=== PATIENT | female | born 1950 | race African-American/Black ===

== ENCOUNTER 2016-07-16 23:46 | Emergency (ER) | payer OTHER ==
[2016-07-17 00:06] VITALS: BMI 25.0
[2016-07-17] MEDS ORDERED: OXYCODONE/APAP 5/325MG COMBO TABLET PO ONE (00:43)
--- NOTE | 2016-07-17 00:47 | PDOC ---
History of Present Illness - General History Source: Patient - History of Present Illness Initial Comments: 07/17/16 01:31 65-year-old female who is right hand dominant presents to the emergency department complaining of 9/10 sharp nonradiating constant discomfort. Pain is exacerbated on movement and alleviated minimally at rest. Patient states she tripped and fell directly onto her right shoulder this evening. She denies any head injuries, headache, dizziness, lightheadedness, neck pains, back pains, chest pain, shortness of breath, abdominal pains, extremity numbness or tingling sensation. 0145hrs: Called Ortho online merchandising specialist Occurred: reports: just prior to arrival Upper Extremity Pain Location: right: shoulder Method of Injury: reports: fell <Dayday Felix - Last Filed: 07/17/16 05:33> <Ree Mojica - Last Filed: 07/17/16 06:31> - General Chief Complaint: Injury Stated Complaint: FALL Time Seen by Provider: 07/16/16 23:48 Past History - Past Medical History HTN: Yes - Psycho/Social/Smoking Cessation Hx Anxiety: No Suicidal Ideation: No Smoking History: Never smoked Have you smoked in the past 12 months: No Information on smoking cessation initiated: No Hx Alcohol Use: No Drug/Substance Use Hx: No <Dayday Felix - Last Filed: 07/17/16 05:33> <Ree Mojica - Last Filed: 07/17/16 06:31> - Past Medical History Allergies/Adverse Reactions: Allergies Allergy/AdvReac Type Severity Reaction Status Date / Time Penicillins Allergy Verified 07/16/16 23:57 quinapril HCl [From Accupril] Allergy Verified 07/16/16 23:57 Home Medications: Ambulatory Orders Furosemide [Lasix -] 40 mg PO DAILY 09/05/14 Valsartan [Diovan] 80 mg PO DAILY 09/05/14 Oxycodone HCl/Acetaminophen [Percocet 5-325 mg Tablet] 1 - 2 tab PO Q6H #20 tab MDD 4 07/17/16 Oxycodone HCl/Acetaminophen [Percocet 5-325 mg Tablet] 1 - 2 tab PO Q6H #20 tab MDD 4 07/17/16 Oxycodone HCl/Acetaminophen [Percocet 5/325 -] 1 tab PO Q6H #28 tablet MDD 4 *Physical Exam - Vital Signs Last Vital Signs Temp Pulse Resp BP Pulse Ox 98.3 F 75 20 124/76 98 07/16/16 23:57 07/16/16 23:57 07/16/16 23:57 07/16/16 23:57 07/16/16 23:57 <Dayday Felix - Last Filed: 07/17/16 05:33> - Vital Signs Last Vital Signs Temp Pulse Resp BP Pulse Ox 97 F L 68 19 163/89 97 07/17/16 05:38 07/17/16 05:38 07/17/16 05:38 07/17/16 05:38 07/17/16 05:38 <Ree Mojica - Last Filed: 07/17/16 06:31> Procedures - Joint Reduction Right Joint Reduction Site: right: Shoulder Pre-Procedure NV Exam: normal Conscious Sedation: Yes Complications: No Post Joint Reduction Film: joint reduced <Ree Mojica - Last Filed: 07/17/16 06:31> ED Treatment Course - LABORATORY CBC & Chemistry Diagram: 07/17/16 04:20 07/17/16 04:20 - RADIOLOGY Radiograph Interpretation: 07/17/16 03:32 A preliminary x-ray of the right shoulder shows a comminuted fracture of the humeral head with anterior dislocation. There is a questionable small glenoid fracture. 07/17/16 05:01 post reduction right shoulder/ reduced/fx <Dayday Felix - Last Filed: 07/17/16 05:33> - LABORATORY CBC & Chemistry Diagram: 07/17/16 04:20 07/17/16 04:20 - ADDITIONAL ORDERS Additional order review: Laboratory Results 07/17/16 07/17/16 04:20 04:00 Sodium 143 Potassium 4.1 Chloride 105 Carbon Dioxide 28 Anion Gap 10 BUN 9 Creatinine 1.0 Creat Clearance w eGFR 55.47 Random Glucose 134 H Calcium 9.5 Total Bilirubin 0.5 AST 33 ALT 32 Alkaline Phosphatase 73 Total Protein 7.2 Albumin 4.2 Blood Type O POSITIVE Antibody Screen Negative 07/17/16 04:20 RBC 4.47 MCV 88.9 MCHC 32.6 RDW 15.1 MPV 9.4 Neutrophils % 85.7 H Lymphocytes % 9.0 Monocytes % 4.8 Eosinophils % 0.1 Basophils % 0.4 - RADIOLOGY Radiology Studies Ordered: Category Date Time Status CHEST - PA [RAD] Stat Radiology 07/17/16 00:46 Taken ELBOW-RIGHT [RAD] Stat Radiology 07/17/16 00:44 Ordered HUMERUS-RIGHT [RAD] Stat Radiology 07/17/16 00:44 Taken SHOULDER-RIGHT [RAD] Stat Radiology 07/17/16 00:44 Taken - Medications Given in the ED: ED Medications Discontinued Medications Generic Name Dose Route Start Last Admin Trade Name Garry PRN Reason Stop Dose Admin Sodium Chloride 1,000 mls @ 150 mls/hr 07/17/16 03:30 07/17/16 03:52 Normal Saline - IV 150 mls/hr ASDIR YUSUF Administration Ketamine HCl 75 mg 07/17/16 04:09 07/17/16 04:20 Ketalar - IVPUSH 07/17/16 04:10 75 mg ONCE ONE Administration Oxycodone/Acetaminophen 2 combo 07/17/16 00:43 07/17/16 01:23 Percocet 5/325 - PO 07/17/16 00:44 2 combo ONCE ONE Administration <Ree Mojica - Last Filed: 07/17/16 06:31> Progress Note - Progress Note Progress Note: 0340hrs: FABIANO Preston coming to ER to consult and reduce pt's fx right shoulder <Dayday Felix - Last Filed: 07/17/16 05:33> *DC/Admit/Observation/Transfer - Discharge Dispostion Admit: No <Dayday Felix - Last Filed: 07/17/16 05:33> <Ree Mojica - Last Filed: 07/17/16 06:31> Diagnosis at time of Disposition: Shoulder fracture, right Qualifiers: Encounter type: initial encounter Fracture type: closed Qualified Code(s): S42.91XA - Fracture of right shoulder girdle, part unspecified, initial encounter for closed fracture Shoulder dislocation Qualifiers: Encounter type: initial encounter Laterality: right Qualified Code(s): S43.004A - Unspecified dislocation of right shoulder joint, initial encounter - Discharge Dispostion Disposition: HOME Condition at time of disposition: Guarded - Prescriptions Prescriptions: Oxycodone HCl/Acetaminophen [Percocet 5/325 -] 1 tab PO Q6H #28 tablet MDD 4 Oxycodone HCl/Acetaminophen [Percocet 5-325 mg Tablet] 1 - 2 tab PO Q6H #20 tab MDD 4 Oxycodone HCl/Acetaminophen [Percocet 5-325 mg Tablet] 1 - 2 tab PO Q6H #20 tab MDD 4 - Referrals Referrals: Elio Sherwood [Primary Care Provider] - Michael Fox MD [Staff Physician] - - Patient Instructions Printed Discharge Instructions: How to Use a Sling, DI for Shoulder Fracture, DI for Shoulder Dislocation Additional Instructions: Rest Ice Keep the sling on Follow up with Dr. Fox Tylenol/Motrin as needed for pain Return to the ER for severe/persistent/worsening symptoms
[2016-07-17] MEDS ORDERED: OXYCODONE/APAP 5/325MG COMBO TABLET ONE (01:17)
[2016-07-17] MEDS ORDERED: SODIUM CHLORIDE 1,000 ML IV SCH (03:30)
[2016-07-17] MEDS ORDERED: KETAMINE HCL 200 MG/20 ML VIAL IVPUSH ONE (04:09)
[2016-07-17] MEDS ORDERED: KETAMINE HCL 200 MG/20 ML VIAL ONE (04:31)
[2016-07-17 04:36] LABS: BASOPHIL 0.4 % (0-2.0); EOSINOPHIL 0.1 % (0-4.5); MCHC 32.6 g/dl (32.0-36.0); MEAN CELL VOLUME 88.9 fl (80-96); MEAN PLT VOLUME 9.4 fl (7.5-11.1); NEUTROPHILS 85.7 % (42.8-82.8); PLATELET COUNT 182 K/MM3 (134-434); RDW 15.1 % (11.6-15.6); WHITE BLOOD COUNT 8.8 K/mm3 (4.0-10.0)
[2016-07-17 04:56] LABS: ALBUMIN 4.2 g/dl (3.4-5.0); BILIRUBIN,TOTAL 0.5 mg/dL (0.2-1.0); CALCIUM 9.5 mg/dL (8.5-10.1); COCKROFT - GAULT 63.4015; TOT PROT 7.2 g/dl (6.4-8.2)
--- NOTE | 2016-07-17 05:28 | CONSULT ---
Consult Consult Specialty:: orthopedics Reason for Consultation:: Right shoulder fracture dislocation - History of Present Illness History of Present Illness: 65y/o female c/o right shoulder pain since about 11pm last night. She tripped on a step in the garage and fell hard on the right shoulder. She denies any numbness or tingling in the extremity. The pain is worse with motion and better with rest. The pain does not radiate. The pain is sharp in nature. No other associated, aggravating or relieving factors. - History Source History Provided By: Patient, Medical Record Limitations to Obtaining History: No Limitations - Alcohol/Substance Use Hx Alcohol Use: No - Smoking History Smoking history: Never smoked Have you smoked in the past 12 months: No Home Medications - Allergies Allergies/Adverse Reactions: Allergies Allergy/AdvReac Type Severity Reaction Status Date / Time Penicillins Allergy Verified 07/16/16 23:57 quinapril HCl [From Accupril] Allergy Verified 07/16/16 23:57 - Home Medications Home Medications: Ambulatory Orders Furosemide [Lasix -] 40 mg PO DAILY 09/05/14 Valsartan [Diovan] 80 mg PO DAILY 09/05/14 Oxycodone HCl/Acetaminophen [Percocet 5/325 -] 1 tab PO Q6H #28 tablet MDD 4 Review of Systems - Review of Systems Constitutional: reports: No Symptoms Eyes: reports: No Symptoms HENT: reports: No Symptoms Neck: reports: No Symptoms Cardiovascular: reports: No Symptoms Respiratory: reports: No Symptoms Gastrointestinal: reports: No Symptoms Genitourinary: reports: No Symptoms Breasts: reports: No Symptoms Reported Musculoskeletal: reports: Joint Pain, Muscle Pain Integumentary: reports: No Symptoms Neurological: reports: No Symptoms Endocrine: reports: No Symptoms Hematology/Lymphatic: reports: No Symptoms Psychiatric: reports: No Symptoms Physical Exam Vital Signs: Vital Signs Temperature 98.3 F 07/16/16 23:57 Pulse Rate 75 07/16/16 23:57 Respiratory Rate 20 07/16/16 23:57 Blood Pressure 124/76 07/16/16 23:57 O2 Sat by Pulse Oximetry (%) 98 07/16/16 23:57 Constitutional: Yes: Well Nourished, No Distress HENT: Yes: Atraumatic, Normocephalic Musculoskeletal: Yes: Other (Right shoulder: there is obvious deformity of the right shoulder. There are no open wounds. No erthema or ecchymosis. Moderate edema of the shoulder. Compartments are soft. NVID.) Labs: CBC, BMP 07/17/16 04:20 07/17/16 04:20 Imaging - Results X-ray: Report Reviewed, Image Reviewed (Right proximal humerous fracture/ dislocaiton. Greater tuberosity and surgical neck fracture.) Cat Scan: Report Reviewed, Image Reviewed (Comminuted fracture proximal humerous ) Assessment/Plan #1 Right shoulder fracture/dislocation -Discussed today's findings and treatment options with the patient. I have recommended a closed reduction with sedation and she would like to proceed. Written and verbal consent for the procedure was obtained. Procedure, Right shoulder fracture/dislocation reduction: The patient was placed in a supine position with a counter traction sheet in place. The patient was sedated with ketamine by the ER staff. Traction/counter-traction technique was then used and traction was held for several minutes and the shoulder was manipulated. post reduction x-rays were obtained showing reduction of the shoulder. The humerus was also palpable within the shoulder joint. The patient tolerated the procedure well. The patient was placed into a sling. Post reduction instructions given. Neurovascular exam was normal s/p reduction. -Follow up with Dr. Fox in office within one week -Pain control -Sling manager maritime
[2016-07-17 05:43] VITALS: BP 163/89; PULSE 68; TEMP 97
== END 2016-07-17 06:10 | disposition home or self-care (01) ==
LOC: JER 23:46
PROC: 0RSJXZZ Reposition Right Shoulder Joint, External Approach (ICD-10-PCS; principal; 2016-07-16)
DX: S43.004A Unspecified dislocation of right shoulder joint, initial encounter (principal); S42.91XA Fracture of right shoulder girdle, part unspecified, initial encounter for closed fracture; I10 Essential (primary) hypertension; W18.39XA Other fall on same level, initial encounter; Y93.9 Activity, unspecified; Y92.9 Unspecified place or not applicable
CPT/HCPCS: 23575; 36415; 71010-TC; 73030-TC-RT; 73060-TC-RT; 73200-TC-RT; 80053; 85025; 86850; 86900; 86901; 99283-25

== ENCOUNTER 2018-08-01 16:59 | Observation (INO) | payer OTHER | END 2018-08-03 18:57 | disposition home or self-care (01) | LOC: JER 16:59 → JERBED 19:06 → J4W 21:40 ==

== ENCOUNTER 2018-08-20 16:04 | Inpatient (IN) | payer OTHER ==
[2018-08-20 16:31] VITALS: BMI 37.3
[2018-08-20 17:12] LABS: BASO % 0.6 % (0-2.0); HEMATOCRIT 36.9 % (32.4-45.2); LYMPH % 24.5 % (8-40); MCH 29.3 pg (25.7-33.7); MCHC 32.5 g/dl (32.0-36.0); MEAN CELL VOLUME 90.1 fl (80-96); MEAN PLT VOLUME 8.2 fl (7.5-11.1); MONO % 11.9 % (3.8-10.2); PLATELET COUNT 254 K/MM3 (134-434); WHITE BLOOD COUNT 4.4 K/mm3 (4.0-10.0)
--- NOTE | 2018-08-20 17:14 | PDOC ---
Documentation entered by Ricky Alatorre SCRIBE, acting as scribe for Caitlyn Craft MD. Caitlyn Craft MD: This documentation has been prepared by the Landry alan Daniel, SCRIBE, under my direction and personally reviewed by me in its entirety. I confirm that the documentation accurately reflects all work, treatment, procedures, and medical decision making performed by me. Attending Attestation - Resident Resident Name: Soy Hickman - ED Attending Attestation I have performed the following: I have examined & evaluated the patient, The case was reviewed & discussed with the resident, I agree w/resident's findings & plan, Exceptions are as noted - HPI HPI: 08/20/18 16:59 The patient is a 67 year old female with a past medical history of HTN and afib (on xarelto) here today for evaluation of heart palpitations. The patient reports that her palpitations began today and notes beginning a grapefruit diet. Patient was seen approximately one month for similar symptoms and notes also beginning a grapefruit diet at that time as well. Patient denies headache, lightheadedness. Denies fever, chills. Denies chest pain, shortness of breath. Denies nausea, vomiting, diarrhea, abdominal pain. Allergies: penicillins, quinapril HCL - Physicial Exam PE: GENERAL: Awake, alert, and fully oriented, in no acute distress HEAD: No signs of trauma EYES: PERRLA, EOMI, sclera anicteric, conjunctiva clear ENT: Auricles normal inspection, hearing grossly normal, nares patent, oropharynx clear without exudates. Moist mucosa NECK: Normal ROM, supple, no lymphadenopathy, JVD, or masses LUNGS: Breath sounds equal, clear to auscultation bilaterally. No wheezes, and no crackles HEART: Irregularly irregular, normal S1 and S2, no murmurs, rubs or gallops ABDOMEN: Soft, nontender, normoactive bowel sounds. No guarding, no rebound. No masses EXTREMITIES: Normal range of motion, no edema. No clubbing or cyanosis. No cords, erythema, or tenderness NEUROLOGICAL: Cranial nerves II through XII grossly intact. Normal speech. Motor and sensation intact SKIN: Warm, Dry, normal turgor, no rashes or lesions noted. - Medical Decision Making Pt with prior history of afib presenting with rapid afib. Meds checked for interactions with grapefruit, but the only one is carvedilol (grapefruit may INCREASE the effects of carvedilol, making this interaction unlikely to cause the episode of rapid afib). Will check labs, as ACS or electrolyte imbalance may be contributing. Likely admission.
--- NOTE | 2018-08-20 17:17 | PDOC ---
History of Present Illness - General Chief Complaint: Irregular Heart Beat Stated Complaint: AFIB Time Seen by Provider: 08/20/18 16:28 History Source: Patient, Old Records Exam Limitations: No Limitations - History of Present Illness Initial Comments: HPI: 67 y/o female BIBEMS to [facility] ER with resolved complaints of chest pain, palpitations, and rapid HR. Found to be in rapid a-fib on EMS arrival (see EKG included below). Received Cardizen and rate control was achieved. At time of interview, the pt denies any acute complaints. States the palpitations started spontaneously while she was preparing to eat lunch. Stated feeling a burning sensation that progressed to palpitations. Denies syncope. In normal state of health prior to episode. Pt has a h/o of a-fib with episodes of rapid afib with RVR. Discharged from this facility on 03 Aug 2018 for the last episode. Rate controlled with Carvedilol. Anticoagulated on Xarelto. Reports good medication compliance. Follows with Dr. Luke for cardiology. Has been referred to mold maker apprentice with appointment in September. Pt reports starting a grapefruit diet last . Had been following the same diet a few days before the last episode as well. Echo 11/18/2017 at [facility]: Normal left ventricular wall motion and ejection fraction. LVEF = 55%. Moderate left atrial dilatation. PCP: Dr. Johnson Insurance Sales Agent: Dr. Luke Medical Hx: HTN, paroxysmal atrial fibrillation (on Xarelto), GERD, PUD, YAIR, DJD, s/p left TKR 05/26/2018, s/p gastric bypass (family is unaware) Review of Systems: In addition to that documented in the HPI above, the additional ROS was obtained : Constitutional: Denies fevers or chills Head: Denies vision changes ENMT: Denies sore throat CV: Denies chest pain Resp: Denies SOB GI: Denies vomiting or diarrhea : Denies painful urination MSK: Denies recent trauma Skin: Denies new rashes Neuro: Denies new numbness or tingling or weakness Endocrine: Denies polyuria Heme: Denies bleeding or bruising Physical Examination: Constitutional: Well-developed, well-nourished adult female in no acute distress or obvious discomfort. Found semi-fowlers on hospital bed. Alert and oriented x4. Answered all questions appropriately and completely. Speech was non -labored, non-pressured. Head: Normocephalic. No obvious external signs of trauma. Cardiovascular / Chest: Irregularly irregular rate and rhythm. No murmur, rubs, clicks, or gallops. Peripheral pulses: radial pulses full. No pretibial edema. Respiratory: Breathing unlabored. Equal chest rise and fall. Clear to auscultation bilaterally. No stridor, no wheezing, no rhonchi. Neuro: Alert and oriented. Moving all four extremities spontaneously. Skin: Warm, dry, and intact. Psych: Affect: appropriate. Mood: normal. MDM: *Reviewed vital signs, nursing notes, and prior visit documentation (if available). 67 y/o female presenting for resolved episode of symptomatic rapid afib. H/o of similar after days of grapefruit diet. Awaiting referral to mold maker apprentice for ablation. Good medication compliance. Afebrile. Vitals unremarkable for hypotension but borderline tachycardia. Afib noted on the monitor. Physical exam as described above. Will obtain EKG, CXR, CBC, CMP, Cardiac profile. EKG revealed afib without ischemic changes. No significant change from previous study from July 2018. Troponin not elevated. No significant electrolyte derangement. Will admit pt for observation for recurrent rapid a-fib. 17:47 Microblog sent to [facility] for admission. Awaiting call back. 18:53 Pt began to experience palpitations. Rapid a-fib to 150bpm noted on telemetry. Ordered 10mg Diltiazem IVP and 60mg Diltiazem PO. 19:13 Telephone consultation with resident Dr. Melvin. Verbally appraised of the pts HPI, ED course, and current plan of management. Will admit pt for attending Dr. Escobar. Soy Hickman M.D., PGY1 Emergency Medicine Resident Past History - Past Medical History Allergies/Adverse Reactions: Allergies Allergy/AdvReac Type Severity Reaction Status Date / Time Penicillins Allergy Verified 07/16/16 23:57 quinapril HCl [From Accupril] Allergy Verified 07/16/16 23:57 Home Medications: Ambulatory Orders Candesartan Cilexetil [Atacand] 32 mg PO DAILY 08/01/18 Carvedilol 3.125 mg PO BID 08/01/18 Hydrochlorothiazide 25 mg PO DAILY 08/01/18 Rivaroxaban [Xarelto -] 20 mg PO DAILY 08/01/18 Tramadol HCl 50 mg PO TID 08/01/18 Zolpidem Tartrate [Ambien] 10 mg PO HS PRN 08/01/18 Cardiac Disorders: Yes (AFIB) COPD: No HTN: Yes - Surgical History Cholecystectomy: (gastric bypass) Gastric Stapling: Yes - Immunization History Immunization Up to Date: No - Suicide/Smoking/Psychosocial Hx Smoking History: Never smoked Have you smoked in the past 12 months: No Hx Alcohol Use: No Drug/Substance Use Hx: No *Physical Exam - Vital Signs Last Vital Signs Temp Pulse Resp BP Pulse Ox 98.7 F 79 18 130/88 97 08/20/18 16:29 08/20/18 16:29 08/20/18 16:29 08/20/18 16:29 08/20/18 16:29 ED Treatment Course - LABORATORY CBC & Chemistry Diagram: 08/20/18 16:58 08/20/18 16:58 - ADDITIONAL ORDERS Additional order review: 08/20/18 16:58 RBC 4.10 MCV 90.1 MCHC 32.5 RDW 15.0 MPV 8.2 Neutrophils % 61.0 D Lymphocytes % 24.5 D Monocytes % 11.9 H Eosinophils % 2.0 Basophils % 0.6 - RADIOLOGY Radiology Studies Ordered: Category Date Time Status CHEST X-RAY PORTABLE* [RAD] Stat Radiology 08/20/18 17:02 Ordered Medical Decision Making - Medical Decision Making 08/20/18 17:25 *DC/Admit/Observation/Transfer Diagnosis at time of Disposition: Rapid atrial fibrillation - Discharge Dispostion Condition at time of disposition: Stable Decision to Admit order: Yes - Referrals - Patient Instructions - Post Discharge Activity
[2018-08-20 17:41] LABS: ALBUMIN 3.7 g/dl (3.4-5.0); BILIRUBIN,TOTAL 0.4 mg/dL (0.2-1); CALCIUM 9.6 mg/dL (8.5-10.1); PHOSPHOROUS 2.2 mg/dL (2.5-4.9); POTASSIUM 3.6 mmol/L (3.5-5.1); TOT PROT 6.8 g/dl (6.4-8.2)
[2018-08-20] MEDS ORDERED: dilTIAZem HCL 50 MG/10 ML - 10 ML VIAL IVPUSH ONE (18:50)
[2018-08-20] MEDS ORDERED: dilTIAZem HCL 60 MG TABLET (FP) PO ONE (18:51)
[2018-08-20] MEDS ORDERED: dilTIAZem HCL 125 MG/25 ML - 25 ML VIAL ONE (18:53)
[2018-08-20] MEDS ORDERED: dilTIAZem HCL 60 MG TABLET (FP) ONE (18:53)
[2018-08-20] MEDS ORDERED: NAPH,MB-DB/K PH,MBDB POWDER PACKET PO ONE (19:19)
[2018-08-20] MEDS ORDERED: ZOLPIDEM TARTRATE 5 MG TABLET PO PRN (19:21)
--- NOTE | 2018-08-20 20:31 | HP ---
CHIEF COMPLAINT: palpitations HISTORY OF PRESENT ILLNESS: 67 year old female with a history of paroxysmal atrial fibrillation, hypertension presents to the hospital for palpitations that began before lunch around 2pm today. She states that she was out after taoism and about to sit down for lunch when she noted her heart was beating quickly. She told her friend , who informed her to come to the emergency department. When EMS arrived, they took an EKG and noted that she was in rapid ventricular response from her A-fib , gave her diltiazem, which slowed her rate and brought her to the ED. She states that she has been on a grapefruit diet on and off since the 1970s, and noticed that these palpitations seem to occur a couple of days since beginning this diet. Currently she is did 3 days of the grapefruit diet before today. The last time her carvedilol was increased to 6.25, she states that her heart rate dropped to the 40s, so it was decreased again to 3.125. Currently denies chest pain, shortness of breath, palpitations, nausea, vomiting, diarrhea, fevers, chills, recent illness, recent travel. Most recent echo was in March in the [place]. In our records, most recent echo was in 10/2017 showed EF 55% without any LV dysfunction. She has appointment with Dr. Canseco for EP visit and possible ablation in the next 2 months. ER course was notable for: (1) another dose of dilt for run of afib in ED (2) (3) Recent Travel: denies PAST MEDICAL HISTORY: afib/rvr PAST SURGICAL HISTORY: 2008 (gastric bypass), R shoulder surgery (2016) Social History: Smoking: denies Alcohol: denies Drugs: denies Family History: mother with hypertension Allergies Penicillins Allergy (Verified 07/16/16 23:57) quinapril HCl [From Accupril] Allergy (Verified 07/16/16 23:57) - cough HOME MEDICATIONS: Home Medications Medication Instructions Recorded Candesartan Cilexetil [Atacand] 32 mg PO DAILY 08/01/18 Carvedilol 3.125 mg PO BID 08/01/18 Hydrochlorothiazide 25 mg PO DAILY 08/01/18 Rivaroxaban [Xarelto -] 20 mg PO DAILY 08/01/18 Tramadol HCl 50 mg PO TID 08/01/18 Zolpidem Tartrate [Ambien] 10 mg PO HS PRN 08/01/18 REVIEW OF SYSTEMS CONSTITUTIONAL: Absent: fever, chills, diaphoresis, generalized weakness, malaise, loss of appetite, weight change HEENT: Absent: rhinorrhea, nasal congestion, throat pain, throat swelling, difficulty swallowing, mouth swelling, ear pain, eye pain, visual changes CARDIOVASCULAR: Absent: chest pain, syncope, palpitations, irregular heart rate, lightheadedness , peripheral edema RESPIRATORY: Absent: cough, shortness of breath, dyspnea with exertion, orthopnea, wheezing, stridor, hemoptysis GASTROINTESTINAL: Absent: abdominal pain, abdominal distension, nausea, vomiting, diarrhea, constipation, melena, hematochezia GENITOURINARY: Absent: dysuria, frequency, urgency, hesitancy, hematuria, flank pain, genital pain MUSCULOSKELETAL: Absent: myalgia, arthralgia, joint swelling, back pain, neck pain SKIN: Absent: rash, itching, pallor HEMATOLOGIC/IMMUNOLOGIC: Absent: easy bleeding, easy bruising, lymphadenopathy, frequent infections ENDOCRINE: Absent: unexplained weight gain, unexplained weight loss, heat intolerance, cold intolerance NEUROLOGIC: Absent: headache, focal weakness or paresthesias, dizziness, unsteady gait, seizure, mental status changes, bladder or bowel incontinence PSYCHIATRIC: Absent: anxiety, depression, suicidal or homicidal ideation, hallucinations. PHYSICAL EXAMINATION Vital Signs - 24 hr 08/20/18 08/20/18 08/20/18 16:29 17:51 18:57 Temperature 98.7 F Pulse Rate 79 Pulse Rate [ 93 H 14 L Apical] Respiratory 18 18 14 Rate Blood Pressure 130/88 Blood Pressure 117/78 133/60 [Right Arm] O2 Sat by Pulse 97 98 99 Oximetry (%) GENERAL: A&Ox3, no acute distress EYES: PERRLA, EOMI ENT: Moist mucus membranes NECK: No JVD LUNGS: CTA, no wheezes HEART: tachycardic, irregular ABDOMEN: Soft, nontender, BS present MUSCULOSKELETAL: No CVA Tenderness EXTREMITIES: 2+ pulses, no edema. NEUROLOGICAL: Cranial nerves II-XII intact. Laboratory Results - last 24 hr 08/20/18 08/20/18 08/20/18 16:58 16:58 16:58 WBC 4.4 RBC 4.10 Hgb 12.0 Hct 36.9 D MCV 90.1 MCH 29.3 MCHC 32.5 RDW 15.0 Plt Count 254 D MPV 8.2 Absolute Neuts (auto) 2.7 Neutrophils % 61.0 D Lymphocytes % 24.5 D Monocytes % 11.9 H Eosinophils % 2.0 Basophils % 0.6 Nucleated RBC % 0 Sodium 143 Potassium 3.6 Chloride 111 H Carbon Dioxide 26 Anion Gap 6 L BUN 16 Creatinine 1.0 Est GFR (CKD-EPI)AfAm 67.04 Est GFR (CKD-EPI)NonAf 57.84 Random Glucose 103 Calcium 9.6 Phosphorus 2.2 L Magnesium 2.2 Total Bilirubin 0.4 AST 26 ALT 25 Alkaline Phosphatase 90 Creatine Kinase 126 Troponin I 0.03 Total Protein 6.8 Albumin 3.7 ASSESSMENT/PLAN: 67 year old female with a history of paroxysmal atrial fibrillation, hypertension presents to the hospital for palpitations that began before lunch around 2pm today and admitted for afib/rvr #Atrial Fibrillation with Rapid Ventricular Response: unclear etiology at this time given unremarkable echocardiograms in the past and no significant risk factors. Patient has been on carvedilol 3.125 which does not seem to be adequetely controlling the rate. Unclear whether her grapefruit diet is involved as it does not seem to interact with her medications -start diltiazem 30mg q6h and monitor heart rate to determine dose of long acting -EKG shows Afib/RVR with rate 90 and Qtc 453 -CXR norm -hold carvedilol -continue xarelto -TSH normal on last visit -Dr. Luke consultation -recommended ceasing grapefruit diet and checking home diet logs -echocardiogram #Hypertension: stable -continue HCTZ -Valsartan 320 #FEN -no standing fluids -lytes normal -sodium controlled diet #Prophylaxis -xarelto #Disposition -admit tele Visit type - Emergency Visit Emergency Visit: Yes ED Registration Date: 08/20/18 Care time: The patient presented to the Emergency Department on the above date and was hospitalized for further evaluation of their emergent condition. - New Patient This patient is new to me today: Yes Date on this admission: 08/20/18 - Critical Care Critical Care patient: No
[2018-08-20] MEDS ORDERED: CARVEDILOL 6.25 MG TABLET (FP) PO SCH (22:00)
--- NOTE | 2018-08-20 22:09 | PN ---
Teaching Attending Note Name of Resident: Pierre Melvin ATTENDING PHYSICIAN STATEMENT I saw and evaluated the patient. I reviewed the resident's note and discussed the case with the resident. I agree with the resident's findings and plan as documented. SUBJECTIVE: This is a 67 year old woman with a history of PAF, HTN, GERD, PUD, DJD, YAIR who comes to the ED complaining that her heart was racing. EMS found her to be in rapid a fib and administered diltiazem with good response. In the ED, she again reported palpitations and was found to have HR 150. She was given diltizaem 10 mg IVP and diltiazem 60 mg PO with good response. Currently she denies palpitations, SOB, dizziness, CP. She is scheduled to see an cable respooler next month. OBJECTIVE: Vital Signs Period Temp Pulse Resp BP Sys/Page Pulse Ox Last 24 Hr 98.1 F-98.7 F 14-93 14-18 113-133/60-88 97-99 HEART: Irregularly irregular LUNGS: Clear ABDOMEN: Obese, soft, non-tender, non-distended, normal BS EXTREMITIES: Left leg swollen Laboratory Tests 08/20/18 08/20/18 08/20/18 16:58 16:58 16:58 WBC 4.4 RBC 4.10 Hgb 12.0 Hct 36.9 D MCV 90.1 MCH 29.3 MCHC 32.5 RDW 15.0 Plt Count 254 D MPV 8.2 Absolute Neuts (auto) 2.7 Neutrophils % 61.0 D Lymphocytes % 24.5 D Monocytes % 11.9 H Eosinophils % 2.0 Basophils % 0.6 Nucleated RBC % 0 Sodium 143 Potassium 3.6 Chloride 111 H Carbon Dioxide 26 Anion Gap 6 L BUN 16 Creatinine 1.0 Est GFR (CKD-EPI)AfAm 67.04 Est GFR (CKD-EPI)NonAf 57.84 Random Glucose 103 Calcium 9.6 Phosphorus 2.2 L Magnesium 2.2 Total Bilirubin 0.4 AST 26 ALT 25 Alkaline Phosphatase 90 Creatine Kinase 126 Troponin I 0.03 Total Protein 6.8 A lbumin 3.7 Home Medications Medication Instructions Recorded Candesartan Cilexetil [Atacand] 32 mg PO DAILY 08/01/18 Carvedilol 3.125 mg PO BID 08/01/18 Hydrochlorothiazide 25 mg PO DAILY 08/01/18 Rivaroxaban [Xarelto -] 20 mg PO DAILY 08/01/18 Tramadol HCl 50 mg PO TID 08/01/18 Zolpidem Tartrate [Ambien] 10 mg PO HS PRN 08/01/18 ASSESSMENT AND PLAN: This is a 67 year old woman with a history of PAF, HTN, GERD, PUD, DJD, YAIR who presented to the ED with palpitations. 1. Atrial fibrillation with RVR - HR improved with diltiazem - On Coreg 3.125 mg 2x daily at home - 6.25 mg 2x daily caused bradycardia - Start Cardizem [address] of Coreg - Continue Xarelto - Monitor on telemetry - Serial troponins - TSH was normal 08/01 - Cardiology eval 2. HTN - On Atacand, Coreg, HCTZ at home - Cardizem being added for a fib rate control - Coreg being discontinued to prevent bradycardia - Monitor BP and adjust meds accordingly 3. GERD/PUD 4. YAIR 5. DJD 6. Obesity with BMI 37.3
[2018-08-20] MEDS ORDERED: traMADol HCL 50 MG TABLET ONE (22:41)
[2018-08-20] MEDS: traMADol HCL 50 MG TABLET PO SCH (22:53)
[2018-08-20] MEDS: RIVAROXABAN 20 MG TABLET PO SCH (23:00)
[2018-08-21] MEDS ORDERED: MELATONIN 5 MG TABLETS PO ONE (01:56)
[2018-08-21] MEDS ORDERED: dilTIAZem HCL 30 MG TABLET (FP) ONE ×3 (04:22→11:30)
[2018-08-21] MEDS: dilTIAZem HCL 30 MG TABLET (FP) PO SCH ×4 (04:41→17:25)
[2018-08-21] MEDS: traMADol HCL 50 MG TABLET PO SCH ×2 (06:56→14:09)
[2018-08-21 06:58] LABS: HEMATOCRIT 34.3 % (32.4-45.2); HEMOGLOBIN 11.3 GM/dL (10.7-15.3); MCH 29.5 pg (25.7-33.7); MCHC 32.9 g/dl (32.0-36.0); MEAN CELL VOLUME 89.6 fl (80-96); MEAN PLT VOLUME 8.5 fl (7.5-11.1); PLATELET COUNT 266 K/MM3 (134-434); RBC 3.82 M/mm3 (3.60-5.2); RDW 14.9 % (11.6-15.6); WHITE BLOOD COUNT 4.3 K/mm3 (4.0-10.0)
[2018-08-21] MEDS ORDERED: traMADol HCL 50 MG TABLET ONE ×2 (06:59→14:07)
[2018-08-21 08:00] LABS: CALCIUM 9.1 mg/dL (8.5-10.1); MAGNESIUM 2.4 mg/dL (1.8-2.4); PHOSPHOROUS 3.7 mg/dL (2.5-4.9); POTASSIUM 3.7 mmol/L (3.5-5.1)
[2018-08-21] MEDS ORDERED: VALSARTAN 80 MG TABLET (UD) ONE (09:05)
[2018-08-21] MEDS ORDERED: HYDROCHLOROTHIAZIDE 25 MG TABLET (FP) ONE (09:05)
[2018-08-21] MEDS ORDERED: RIVAROXABAN 20 MG TABLET PO SCH (10:00)
[2018-08-21] MEDS ORDERED: HYDROCHLOROTHIAZIDE 25 MG TABLET (FP) PO SCH (10:00)
[2018-08-21] MEDS ORDERED: VALSARTAN 160 MG TABLET (UD) PO SCH (10:00)
--- NOTE | 2018-08-21 11:18 | EKG ---
Test Reason : Blood Pressure : / mmHG Vent. Rate : 090 BPM Atrial Rate : 267 BPM P-R Int : 000 ms QRS Dur : 086 ms QT Int : 370 ms P-R-T Axes : 000 -39 -06 degrees QTc Int : 452 ms ATRIAL FIBRILLATION LEFT AXIS DEVIATION SEPTAL INFARCT (CITED ON OR BEFORE 01-AUG-2018) ABNORMAL ECG WHEN COMPARED WITH ECG OF 01-AUG-2018 17:26, NO SIGNIFICANT CHANGE WAS FOUND Confirmed by HEMA SINGLETON MD ([id number]) on 08/21/2018 11:17:52 AM Referred By: Confirmed By:HEMA SINGLETON MD
--- NOTE | 2018-08-21 12:29 | ECHO ---
Name: MATTAKALPESH Exam:Adult Echocardiogram Study Date: 08/21/2018 08:32 AM Age: 67 yrs Reason For Study: A-Fib Height: 67 in Weight: 238 lb BSA: 2.2 m2 MMode/2D Measurements & Calculations IVSd: 1.2 cm Ao root diam: 3.0 cm LVIDd: 4.8 cm LA dimension: 3.7 cm LVIDs: 2.8 cm LVPWd: 1.0 cm EDV(Teich): 105.0 ml LVOT diam: 2.0 cm ESV(Teich): 30.6 ml LAV (MOD-bp): 73.5 ml Doppler Measurements & Calculations MV E max kira: 79.1 cm/sec Ao V2 max: 162.9 cm/sec MV A max kira: 85.9 cm/sec Ao max P.6 mmHg MV E/A: 0.92 MV dec time: 0.15 sec HIRAL(V,D): 2.5 cm2 LV V1 max P.1 mmHg TR max kira: 231.8 cm/sec LV V1 max: 123.2 cm/sec TR max P.5 mmHg PA V2 max: 101.8 cm/sec PI Vmax: 168.3 cm/sec PA max P.1 mmHg Procedure A complete two-dimensional transthoracic echocardiogram was performed (2D, M-mode, Doppler and color flow Doppler). Left Ventricle The left ventricle is normal in size. There is mild concentric left ventricular hypertrophy. Left merline tricular systolic function is normal. Ejection Fraction = 60-65%. No regional wall motion abnormalities noted. Right Ventricle The right ventricle is normal size. The right ventricular systolic function is normal. Atria The left atrial size is normal. LA volume index is 34 ml/m2. Right atrial size is normal. Mitral Valve The mitral valve is normal in structure and function. There is mild mitral regurgitation. Tricuspid Valve The tricuspid valve is normal in structure and function. There is mild tricuspid regurgitation. Pulmo nary artery systolic pressure is at least 27 mmHg assuming RA pressure of 3 mmHg. Aortic Valve The aortic valve is normal in structure and function. No aortic regurgitation is present. Pulmonic Valve The pulmonic valve is not well visualized. Great Vessels The aortic root is normal size. Pericardium/Pleura There is no pericardial effusion. Interpretation Summary The left ventricle is normal in size. There is mild concentric left ventricular hypertrophy. Left ventricular systolic function is normal. No regional wall motion abnormalities noted. Ejection Fraction = 60-65%. The right ventricular systolic function is normal. Right atrial size is normal. The left atrial size is normal. There is mild mitral regurgitation. There is mild tricuspid regurgitation. Pulmonary artery systolic pressure is at least 27 mmHg assuming RA pressure of 3 mmHg There is no pericardial effusion. Previous study is not available for comparison Simon Warren MD 08/21/2018 12:29 PM
--- NOTE | 2018-08-21 13:43 | PN ---
Physical Exam: SUBJECTIVE: Patient seen and examined at bedside. No acute events overnight. OBJECTIVE: Vital Signs Temperature 98.5 F 08/21/18 05:58 Pulse Rate 57 L 08/21/18 09:25 Respiratory Rate 17 08/21/18 08:22 Blood Pressure 114/67 08/21/18 08:22 O2 Sat by Pulse Oximetry (%) 98 08/21/18 08:22 CBCD WBC 4.3 K/mm3 (4.0-10.0) 08/21/18 06:27 RBC 3.82 M/mm3 (3.60-5.2) 08/21/18 06:27 Hgb 11.3 GM/dL (10.7-15.3) 08/21/18 06:27 Hct 34.3 % (32.4-45.2) 08/21/18 06:27 MCV 89.6 fl (80-96) 08/21/18 06:27 MCHC 32.9 g/dl (32.0-36.0) 08/21/18 06:27 RDW 14.9 % (11.6-15.6) 08/21/18 06:27 Plt Count 266 K/MM3 (134-434) 08/21/18 06:27 MPV 8.5 fl (7.5-11.1) 08/21/18 06:27 CMP Sodium 144 mmol/L (136-145) 08/21/18 06:27 Potassium 3.7 mmol/L (3.5-5.1) 08/21/18 06:27 Chloride 111 mmol/L (98-107) H 08/21/18 06:27 Carbon Dioxide 27 mmol/L (21-32) 08/21/18 06:27 Anion Gap 6 MMOL/L (8-16) L 08/21/18 06:27 BUN 16 mg/dL (7-18) 08/21/18 06:27 Creatinine 1.0 mg/dL (0.55-1.3) 08/21/18 06:27 Calcium 9.1 mg/dL (8.5-10.1) 08/21/18 06:27 Total Bilirubin 0.4 mg/dL (0.2-1) 08/20/18 16:58 AST 26 U/L (15-37) 08/20/18 16:58 ALT 25 U/L (13-61) 08/20/18 16:58 Alkaline Phosphatase 90 U/L (45-117) 08/20/18 16:58 Total Protein 6.8 g/dl (6.4-8.2) 08/20/18 16:58 Albumin 3.7 g/dl (3.4-5.0) 08/20/18 16:58 Active Medications Diltiazem HCl (Cardizem -) 30 mg PO Q6HPO [facility] Last Admin: 08/21/18 11:34 Dose: 30 mg Hydrochlorothiazide (Hctz -) 25 mg PO DAILY [facility] Last Admin: 08/21/18 09:09 Dose: 25 mg Rivaroxaban (Xarelto) 20 mg PO DAILY@1800 [facility] Last Admin: 08/20/18 23:00 Dose: 20 mg Tramadol HCl (Ultram -) 50 mg PO TID [facility] Last Admin: 08/21/18 06:56 Dose: 50 mg Valsartan (Diovan -) 320 mg PO DAILY [facility] Last Admin: 08/21/18 09:09 Dose: 320 mg Zolpidem Tartrate (Ambien -) 5 mg PO HS PRN PRN Reason: INSOMNIA ASSESSMENT/PLAN:
--- NOTE | 2018-08-21 14:57 | CON.CARD ---
Consult Consult Specialty:: Cardiology Referred by:: Kavon Escobar Reason for Consultation:: Afib - History of Present Illness Chief Complaint: Palpitations History of Present Illness: This is a 67 year old woman with a history of PAF, HTN, GERD, PUD, DJD, YAIR who comes to the ED complaining of palpitations found to have afib. S/p diltiazem x2. Currently feels well and in sinus rhythm. No chest pain, sob, or pnd/ orthpnea. No edema. Normal LVEF on echo - History Source History Provided By: Patient, Medical Record - Past Medical History Cardio/Vascular: Yes: AFIB, HTN - Alcohol/Substance Use Hx Alcohol Use: No - Smoking History Smoking history: Never smoked Have you smoked in the past 12 months: No Home Medications - Allergies Allergies/Adverse Reactions: Allergies Allergy/AdvReac Type Severity Reaction Status Date / Time Penicillins Allergy Verified 08/21/18 05:33 quinapril HCl [From Accupril] Allergy Verified 08/21/18 05:33 - Home Medications Home Medications: Ambulatory Orders Candesartan Cilexetil [Atacand] 32 mg PO DAILY 08/01/18 Carvedilol 3.125 mg PO BID 08/01/18 Hydrochlorothiazide 25 mg PO DAILY 08/01/18 Rivaroxaban [Xarelto -] 20 mg PO DAILY 08/01/18 Tramadol HCl 50 mg PO TID 08/01/18 Zolpidem Tartrate [Ambien] 10 mg PO HS PRN 08/01/18 Vital Signs: Vital Signs Temperature 98.5 F 08/21/18 05:58 Pulse Rate 57 L 08/21/18 12:00 Respiratory Rate 17 08/21/18 12:00 Blood Pressure 110/62 08/21/18 12:00 O2 Sat by Pulse Oximetry (%) 98 08/21/18 12:00 Neck: Yes: Supple Respiratory: Yes: CTA Bilaterally Gastrointestinal: Yes: Soft Cardiovascular: Yes: Regular Rate and Rhythm, Bradycardia JVD: No Carotid Bruit: No PMI: Non-Displaced Heart Sounds: Yes: S1, S2 Murmur: No: Systolic Murmur Edema: No - Other Data Labs, Other Data: CBC, BMP 08/21/18 06:27 08/21/18 06:27 Troponin, BNP 08/20/18 16:58 Troponin I 0.03 Troponin, BNP 08/20/18 16:58 Troponin I 0.03 Imaging - Results Chest X-ray: Report Reviewed EKG: Image Reviewed Assessment/Plan This is a 67 year old woman with a history of PAF, HTN, GERD, PUD, DJD, YAIR who comes to the ED complaining of palpitations found to have afib. S/p diltiazem x2. Currently feels well and in sinus rhythm. No chest pain, sob, or pnd/ orthpnea. No edema. Normal LVEF on echo 1) Afib -paroxysmal afib -TFT's checked last month -Will not tolerate bblocker and ccb given HR drops in sinus on moderate dose of carvedilol. Echo normal LVEF. -Currently back in sinus and feels well. She will likely need further intervention with possible afib ablation as an outpatient. Can stop carvedilol and give her low dose cardizem 120mg daily and we can see as an outpatient how she responds. I contacted Dr. Vasquez as appt not till September and he will inform me how soon he can see her. I know the patient well and will contact her with the appt. No further cardiac testing at this time.
--- NOTE | 2018-08-21 16:54 | DS ---
Physical Exam: SUBJECTIVE: Patient seen and examined at bedside. No acute events overnight. OBJECTIVE: Vital Signs Temperature 98 F 08/21/18 17:10 Pulse Rate 56 L 08/21/18 17:10 Respiratory Rate 18 08/21/18 17:10 Blood Pressure 144/90 08/21/18 17:10 O2 Sat by Pulse Oximetry (%) 98 08/21/18 16:56 PHYSICAL EXAM GENERAL: A&Ox3, no acute distress EYES: PERRLA, EOMI ENT: Moist mucus membranes NECK: No JVD LUNGS: CTA, no wheezes HEART: tachycardic, irregular ABDOMEN: Soft, nontender, BS present MUSCULOSKELETAL: No CVA Tenderness EXTREMITIES: 2+ pulses, no edema. NEUROLOGICAL: Cranial nerves II-XII intact. CBC, BMP 08/21/18 06:27 08/21/18 06:27 HOSPITAL COURSE: Date of Admission:08/20/18 67F with a history of paroxysmal atrial fibrillation, hypertension presents to the hospital for palpitations and admitted for afib/rvr. In the ED, pt was given diltiazem for rate control. She was admitted to telemetry and evaluated by cardio. Upon cardiac eval, pt was recommended to discontinue taking Carvedilol and to start Cardizem, as well as to follow up outpatient. Her symptoms improved and she was advised to follow up with her PCP and porcelain enameler within 1 week. Date of Discharge: 08/21/18 Minutes to complete discharge: 35 Discharge Summary Reason For Visit: PAROXY ATRIAL FIBRILLATION W/ RAPID VENTRICULAR Current Active Problems Rapid atrial fibrillation (Acute) Condition: Improved - Instructions Diet, Activity, Other Instructions: You were seen in the hospital for complaints of palpitations. You were evaluated by the porcelain enameler with no need for further cardiac work up to be done in the hospital. Your symptoms improved. Your echo did not show any acute cardiac concern. You are being discharged home. MEDICAL RECOMMENDATIONS Please STOP taking Carvedilol. Please START taking Cardizem 120 mg once a day. CONSULT RECOMMENDATIONS You need to follow up with your PCP, Dr. Johnson within 1 week. Additionally, please follow up with your porcelain enameler, Dr. Canseco, within 1 week for your possible ablation. If you continue to experience chest pain, palpitations, worsening shortness of breath or other associated symptoms, please proceed to your nearest emergency room immediately. Referrals: Juan A Johnson [Primary Care Provider] - 1 Week Disposition: HOME - Home Medications Comprehensive Discharge Medication List: Ambulatory Orders Candesartan Cilexetil [Atacand] 32 mg PO DAILY 08/01/18 Hydrochlorothiazide 25 mg PO DAILY 08/01/18 Rivaroxaban [Xarelto -] 20 mg PO DAILY 08/01/18 Tramadol HCl 50 mg PO TID 08/01/18 Zolpidem Tartrate [Ambien] 10 mg PO HS PRN 08/01/18 Diltiazem Cd [Cardizem Cd -] 120 mg PO DAILY #30 cap.cd.24h 08/21/18 This patient is new to me today: Yes Date on this admission: 08/22/18 Emergency Visit: Yes ED Registration Date: 08/20/18 Care time: The patient presented to the Emergency Department on the above date and was hospitalized for further evaluation of their emergent condition. Critical Care patient: No - Discharge Referral Referred to [facility] No
--- NOTE | 2018-08-21 17:02 | PN ---
Teaching Attending Note Name of Resident: Ana Alcantar ATTENDING PHYSICIAN STATEMENT I saw and evaluated the patient. I reviewed the resident's note and discussed the case with the resident. I agree with the resident's findings and plan as documented. SUBJECTIVE:asymptomatic. states she felt her heart racing. this is her 4th episode of afib. denies CP, SOB, fever, chills, N/V/C/D denies recent medication changes, recent infection. claims eating and drinking well OBJECTIVE: Last Vital Signs Temp Pulse Resp BP Pulse Ox 98.5 F 58 L 17 114/72 98 08/21/18 05:58 08/21/18 15:17 08/21/18 15:17 08/21/18 15:17 08/21/18 15:17 General NAD CV S1 S2 RRR +murmur Lungs CTA B/L no wheezing/rales/rhonchi ASSESSMENT AND PLAN: 67yo F with PMH PAF, HTN and GERD presented to the ER with palpitations and found to be in afib with RVR 1. Afib with RVR- HR 150 on arrival. received dilt 10mg x1 and 60mg po x1 with good response. currently back in NSR. will switch to cardizem. d/c coreg. cont xarelto. echo pending. further management per cardio. unknown last ischemia eval. possible d/c home later today
[2018-08-21 17:11] VITALS: BP 144/90; PULSE 56; TEMP 98
[2018-08-21] MEDS: RIVAROXABAN 20 MG TABLET PO SCH (17:26)
== END 2018-08-21 17:40 | disposition home or self-care (01) | DRG 310 ==
LOC: SUPCPDRO 16:04 → JER 16:04 → JERBED 17:44 → OBSVTOIN 20:39 → J4W 08-21 16:34
PROVIDERS: ADMIT Internal Medicine; ATTEND Internal Medicine
DX: I48.0 Paroxysmal atrial fibrillation (principal); K21.9 Gastro-esophageal reflux disease without esophagitis; G47.33 Obstructive sleep apnea (adult) (pediatric); I10 Essential (primary) hypertension; M19.90 Unspecified osteoarthritis, unspecified site; E66.9 Obesity, unspecified; Z98.84 Bariatric surgery status; Z96.642 Presence of left artificial hip joint; Z68.37 Body mass index [BMI] 37.0-37.9, adult
CPT/HCPCS: 36415; 71045-TC-FY; 80048; 80053; 82550; 83735; 84100; 84443; 84484; 85025; 85027; 93005; 93010; 93306-TC; 99285-25; G0378